=== PATIENT | female | born 1975 | race Caucasian/White ===

== ENCOUNTER → 2017-05-31 | Outpatient (CLI) | payer OTHER ==
--- NOTE | 2017-05-31 15:33 | RADIOLOGY IMAGING REPORT ---
FACILITY: [facility] PATIENT NAME: EDMOND GREENWOOD : [id number] MR: [id number] V: [id number] EXAM DATE: [id number] ORDERING PHYSICIAN: ALMAZ MCFADDEN TECHNOLOGIST: Yuni Joyner PROCEDURE:BILATERAL DIAGNOSTIC DIGITAL MAMMOGRAM COMPARISON:None. INDICATIONS:SPONTANEOUS NIPPLE DISCHARGE FINDINGS: This digital mammogram has been dictated along with the Ultrasound IMPRESSION: 1. Dictated by: Titi Youngblood M.D. on 05/31/2017 at 13:08 Transcribed by: HECTOR on 05/31/2017 at 14:10 Approved by: Titi Youngblood M.D. on 05/31/2017 at 15:33 [facility]
--- NOTE | 2017-05-31 15:35 | RADIOLOGY IMAGING REPORT ---
FACILITY: PATIENT NAME: EDMOND GREENWOOD : [id number] MR: [id number] V: [id number] EXAM DATE: [id number] ORDERING PHYSICIAN: ALMAZ MCAFDDEN TECHNOLOGIST: Ashwin Taylor PROCEDURE:BILATERAL DIAGNOSTIC MAMMOGRAM WITH CAD ASSISTED INTERPRETATION & 3D TOMOSYNTHESIS, AND US LEFT BREAST COMPARISON:None. INDICATIONS:SPONTANEOUS CLEAR LEFT NIPPLE DISCHARGE FINDINGS: Mammographic findings: Scattered fibroglandular tissue is present in both breasts. No masses or suspicious calcifications. Ultrasound findings: A few mildly dilated ducts are present in the Left retroareolar region. A 5mm oval shaped mass suggesting a papilloma is present within a duct in the inferior Left retroareolar region. DIAGNOSTIC CATEGORY 4--SUSPICIOUS FOR MALIGNANCY. RECOMMENDATIONS: SURGICAL CONSULTATION. IMPRESSION: BIRADS 4a: Suspicious abnormality. RECOMMENDATIONS: Surgical consultation for evaluation of Left retroareolar intraductal mass. COMMENT: The findings and recommendations were discussed with the patient on 05/31/17. Dictated by: Titi Youngblood M.D. on 05/31/2017 at 12:14 Transcribed by: HECTOR on 05/31/2017 at 14:10 Approved by: Titi Youngblood M.D. on 05/31/2017 at 15:34 [facility]
== END ==
LOC: MAMO 10:21
PROVIDERS: ATTEND Nurse Practitioner Family
DX: N60.42 Mammary duct ectasia of left breast (principal)
CPT/HCPCS: 77062; 77066

== ENCOUNTER 2017-07-22 01:01 | Day surgery (SDC) | payer OTHER ==
[~2017-07-22] VITALS: Ht 167.6 cm; Wt 121.6 kg
[~2017-07-22 01:01] MED LIST: ALB6.7R INH; ASCO-182 PO; CETI-176 PO; CHOL10005 PO; CYAN100T25 PO; DOXY25TA11 PO; FEXO-20 PO; IBUP200C71 PO; LORA-802 PO; MONT10TA PO; MULT1TAB64 PO; NORMOSOL R SOLN(*) 1000 ML BAG 1,000 ML IV PRN
[2017-07-22 06:21] VITALS: BP 132/67
[2017-07-22 06:27] LABS: PLATELET COUNT, AUTOMATED 285 K/uL (150-450)
[2017-07-22] MEDS ORDERED: NORMOSOL R SOLN(*) 1000 ML BAG 1,000 ML IV PRN (06:45)
[2017-07-22] MEDS ORDERED: ROPIVACAINE 0.5% 20 ML VIAL ONE (07:10)
[2017-07-22] MEDS ORDERED: fentaNYL CITR 100 MCG/2 ML AMP ONE (07:28)
[2017-07-22] MEDS ORDERED: LIDOCAINE 2% IV 100 MG/5ML SYR ONE (07:29)
[2017-07-22] MEDS ORDERED: PROPOFOL EMUL(*) 10MG/ML 20 ML 20 ML ONE (07:30)
[2017-07-22] MEDS ORDERED: DEXAMETHASONE SOD 4 MG/ML VIAL ONE (07:36)
[2017-07-22] MEDS ORDERED: ONDANSETRON 4 MG/2 ML VIAL ONE (07:37)
[2017-07-22] MEDS ORDERED: VANCOMYCIN 1 GM ADDVIAL 1 GM in NS(*) 0.9% 250 ML ADDVAN BAG 250 ML IVPB ONE (08:00)
[2017-07-22] MEDS ORDERED: FAMOTIDINE 20 MG TAB PO ONE (08:00)
[2017-07-22] MEDS ORDERED: MIDAZOLAM 2 MG/2 ML VIAL IVP PRN (08:00)
[2017-07-22] MEDS ORDERED: LIDOCAINE/SOD BICARB 8.4% SYR ID ONE (08:00)
[2017-07-22] MEDS ORDERED: DOCU-416 PO (08:44)
[2017-07-22] MEDS ORDERED: OXYC-854 PO (08:44)
--- NOTE | 2017-07-22 08:47 | Short(Outpt) Discharge Summary ---
Discharge Summary Reason for Hosp/Final Diag: (1) Discharge from left nipple Status: Chronic Hospital Course & Plan: Left breast duct excision completed without problems. 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 Departure Discharge to: Home, Self Care Discharge Instructions Home Meds Active Scripts Docusate Sodium (COLACE) 100 Mg Capsule, 1 CAP PO BID, #30 CAP 0 Refills TAKE WITH A FULL GLASS OF WATER Prov:ELISEO HUFF MD 07/22/17 Oxycodone Hcl/Acet 5/325 Mg (ENDOCET 5-325 TABLET) 1 Each Tablet, 1-2 TAB PO Q4H Y for PAIN, #30 TAB 0 Refills Prov:ELISEO HUFF MD 07/22/17 Reported Medications Doxylamine Succinate (SLEEP AID) 25 Mg Tablet, 25 MG PO PRN 06/02/17 Cholecalciferol (Vitamin D3) (VITAMIN D3) 1,000 Unit Tablet, 1000 UNIT PO QDAY, TAB 06/02/17 Ascorbic Acid (VITAMIN C) 500 Mg Tablet, 500 MG PO QDAY, TAB 06/02/17 Ibuprofen (IBUPROFEN) 200 Mg Capsule, 2 CAP PO Q6H Y for prn, CAPSULE 06/02/17 Cyanocobalamin (Vitamin B-12) (VITAMIN B-12) Unknown Strength Tablet, 1000 MCG PO QDAY 06/02/17 Multivitamin (MULTI VITAMIN DAILY) 1 Each Tablet, 1 EACH PO QDAY, TAB 06/02/17 Cetirizine Hcl (ZYRTEC) 10 Mg Tablet, 10 MG PO QDAY, TAB 06/02/17 Loratadine (CLARITIN) 10 Mg Tablet, 10 MG PO QDAY 06/02/17 Fexofenadine Hcl (FEXOFENADINE HCL) Unknown Strength Tablet, 180 MG PO QDAY 06/02/17 Albuterol Sulfate (PROVENTIL HFA) 6.7 Gm Inh, 1-2 PUFF INH DIRECTED, INH 06/02/17 Montelukast Sodium (SINGULAIR) 10 Mg Tablet, 1 TAB PO QDAY, TAB 06/02/17 Follow up Referrals: General Surgery - 08/10/17 @ Surgery, General with Eliseo Huff Md You have a follow up appointment scheduled with Dr. Huff on 08/10/17, at 4:15pm. Diet: Regular Activity: As Tolerated Special Instructions: You may remove the white surgical dressings on 07/24/17, then you can shower. After showering, leave the incisions open to air but leave the steristrips in place until they fall off on their own. Do not immerse the incisions for 2 weeks. There are sutures in your nipple that should fall out in the next 2 weeks but if they haven't by your follow up appointment, I'll remove them at that time. ELISEO HUFF MD July 22, 2017 08:47
--- NOTE | 2017-07-22 08:53 | Post Operative Progress Note ---
Post Operative Progress Note Date: July 22, 2017 Time: 08:47 Surgeon: Polina Dictation number: [id number] Anesthesia: LMA by Dr. Yanes Pre-Op Diagnosis: Left breast nipple discharge with lesion on U/S Post-Op Diagnosis: CASE Findings: None Procedure(s): Left breast duct excision Specimen Removed:(May be N/A): Left breast ducts Complications: None Fluids: See anesthesia record Estimated Blood Loss: Minimal Date OP Note Dictated: July 22, 2017 Time OP Note Dictated: 08:48 ELISEO HUFF MD July 22, 2017 08:53
--- NOTE | 2017-07-22 15:01 | OPERATIVE REPORT 1 ---
EVENT DATE: July 22, 2017 SURGEON: Etienne Fish MD ANESTHESIOLOGIST: Davian Yanes MD ANESTHESIA: LMA. PREOPERATIVE DIAGNOSIS Left breast nipple discharge with lesion on ultrasound consistent with intraductal papilloma. POSTOPERATIVE DIAGNOSIS Left breast nipple discharge with lesion on ultrasound consistent with intraductal papilloma. PROCEDURE PERFORMED Left breast duct excision. COMPLICATIONS None. CONDITION Stable. BLOOD LOSS Minimal. INDICATIONS This is a 41-year-old female who was referred to me with persistent left nonbloody, spontaneous, single duct nipple discharge. She has had previous workup including an ultrasound which consistent with an intraductal papilloma in the inferior portion of her left breast. She was requesting to have the nipple duct or ducts removed depending on surgical findings. DESCRIPTION OF PROCEDURE Patient was brought to the operating room and placed supine on the operating table. LMA anesthesia was administered, and her left breast was prepped and draped in a sterile fashion. Timeout was completed. I was able to express fluid from her left nipple and attempted to cannulate the duct with a lacrimal duct probe, but ultimately was not able to isolate the duct. I then anesthetized the skin at the tip of the nipple as well as around the areolar margin inferiorly with 0.5% ropivacaine plain and then made a circular incision in the center of the nipple and dissected through the dermis and subcutaneous fat. I then made a circumareolar incision along the inferior portion of her areola and dissected through the dermis and subcutaneous fat. I then created an areolar flap cephalad towards the nipple, then encircled the ducts in the center and connected the wound from the nipple to the main wound, then pulled the ducts into the main wound, and then dissected around them for several centimeters. I then passed the specimen off the field and made the wound hemostatic with pressure. I closed the nipple defect with two interrupted 3-0 chromic sutures, then closed the subcutaneous pocket with interrupted 3-0 Vicryl sutures, and the skin was closed with interrupted 3-0 Vicryl deep dermal sutures and 4-0 Monocryl running subcuticular sutures. Skin was cleaned and dried, and Steri-Strips were applied, followed by a sterile surgical dressing. The patient was awakened and LMA removed. She was transported to the recovery room in stable condition having tolerated the procedure without any apparent problems. CHRISTIANO
== END 2017-07-22 09:55 | disposition home or self-care (01) ==
LOC: OR 01:01
PROVIDERS: ATTEND Surgery
DX: D24.2 Benign neoplasm of left breast (principal); E66.01 Morbid (severe) obesity due to excess calories; Z68.41 Body mass index [BMI] 40.0-44.9, adult; J45.909 Unspecified asthma, uncomplicated; F41.8 Other specified anxiety disorders
CPT/HCPCS: 19112; 36415; 81025; 85025; 88305; 88344; J1100; J2001; J2405; J2704; J2795; J3010; J3370; J7050

== ENCOUNTER → 2017-12-14 | Outpatient (CLI) | payer OTHER ==
[~2017-12-14] MED LIST changes: +ALB18R INH; +DOCU-416 PO; +IBUP-136 PO; -IBUP200C71 PO; -NORMOSOL R SOLN(*) 1000 ML BAG 1,000 ML IV PRN; +OXYC-854 PO
== END ==
LOC: LAB 13:47
PROVIDERS: ATTEND Emergency Medicine
DX: R53.83 Other fatigue (principal); H04.123 Dry eye syndrome of bilateral lacrimal glands
CPT/HCPCS: 36415; 82040; 82247; 82306; 82310; 82374; 82435; 82565; 82607; 82947; 84075; 84132; 84155; 84295; 84443; 84450; 84460; 84520; 86038; 86140

== ENCOUNTER → 2017-12-21 | Outpatient (CLI) | payer OTHER ==
--- NOTE | 2017-12-21 16:18 | RADIOLOGY IMAGING REPORT ---
FACILITY: [facility] [place] PATIENT NAME: Jake Brown : 1975 MR: [id number] V: [id number] EXAM DATE: [id number] ORDERING PHYSICIAN: WILMER MEJIA TECHNOLOGIST: Location: [facility] [place] Patient: Jake Brown : 1975 Visit/Account:[id number] Date of Sevice: 12/21/2017 SINUSES W/O CONTRAST COMPARISONS: None ADDITIONAL PERTINENT HISTORY: Recurrent sinus infections with maxillary pressure for several years. TECHNIQUE: Multiple axial images were obtained through the paranasal sinuses with coronal and sagitta l reformatted images. No IV contrast was administered. One of the following dose optimization techni ques was utilized in the performance of this exam: Automated exposure control; adjustment of the mA a nd/or kV according to the patient's size; or use of an iterative reconstruction technique. Specific details can be referenced in the facility's radiology CT exam operational policy. FINDINGS: Maxillary sinuses: Severe lobular mucosal thickening involving both maxillary sinuses.. Frontal sinuses: Negative. Ethmoid air cells: Patchy opacification of the posterior ethmoid air cells. Otherwise negative. Sphenoid sinuses:Negative. Nasal septum: Mild nasal septal deviation to the left.. Drainage pathways: Patent Paranasal variance: None Medial orbital schroeder, cribriform plate, and orbital floors: Negative. Visualized bony skull base Negative. Visualized intracranial contents: Negative. Orbits and surrounding soft tissues: Negative. IMPRESSION: 1. Nonobstructive paranasal sinus disease involving both maxillary sinuses and the posterior ethmoid air cells. 2. Mild nasal septal deviation to the left. Report Dictated By: Michael Taylor MD at 12/21/2017 4:10 PM Report E-Signed By: Michael Taylor MD at 12/21/2017 4:14 PM WSN:[id number]
== END ==
LOC: CT 00:25
PROVIDERS: ATTEND Emergency Medicine
DX: J32.8 Other chronic sinusitis (principal); J34.2 Deviated nasal septum
CPT/HCPCS: 70486

== ENCOUNTER → 2017-12-24 | Outpatient (CLI) | payer OTHER | LOC: RESP 00:24 | PROVIDERS: ATTEND Emergency Medicine | DX: J45.909 Unspecified asthma, uncomplicated (principal) | CPT/HCPCS: 94060; 94726; 94729 ==

== ENCOUNTER 2018-01-25 17:00 | Outpatient (RCR) | payer OTHER ==
--- NOTE | 2018-01-14 08:48 | PT INITIAL EVALUATION ---
MEDICAL DIAGNOSIS: Upper Back Pain TREATMENT DIAGNOSIS: Cervical Dysfunction DATE OF ONSET: 01/13/18 SUBJECTIVE: Jake is a 42 year old female presenting to physical therapy following prolonged onset of the last couple years of upper back and shoulder pain. Pt describes pain as sharp and stabbing when it comes on between the shoulders in the upper back and neck. Pain is rated as a 3/10 currently and comes and goes. Pain at at its worst is rated as 6-7/10 and increases with sitting at the computer. Pain can change from a sharp pain to a burning pain. Pt also occasionally has tingling in fingers on both hands R>L in an ulnar nerve distribution. Pain is better with lying down, massage, and yoga. 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 Pt has a history of L shoulder problems. Pt also has R LE knee and plantar pain. REHAB PROBLEM LIST: Increased Pain Decreased ROM Decreased Strength Decreased Endurance Decreased Function Decreased ADL's Decreased Mobility PREVIOUS MEDICAL HISTORY: See EMR OBJECTIVE: Posture: Rounded shoulders, forward head posture. ROM: Thoracic ROM: flexion: minimal restrictions with pain, B rotation: full, ext: minimally restricted. Cervical ROM: not tested at this time Palpation: Pt is ttp from T2-4 along the spine with radiating pain to B mid scapular level. Sensation: Pt reports occasional numbness and tingling on R forearm and digits 4&5. Mobility: Repeated Thoracic Motion: flexion: pain increased to 4/10 with movement up to C7 no change on shoulder location, ext: pain centralized in to B UT region with movement up to C4 tingling in R lateral digits. Repeated Cervical Motion: retraction with ext: decreased tingling in R hand centralized pain to within 1 inch on L of spine and UT level on R side. Other Objective Findings: QuickDASH: 38.6% ASSESSMENT: Pt presents with signs and symptoms consistent with cervical/thoracic dysfunction with neural impingement. Physical therapy is indicated for this patient to correct the above listed deficits to improve pt function with ADL's and occupational activities. Short Term Goals In 3 weeks pt will centralize pain to the cervical spine only for improved function with ADL's. In 6 weeks pt will increase cervical and thoracic ROM to full for increased functional mobility with ADL's. In 6 weeks pt will increase QuickDASH impairment score to <10% for improved function with ADL's. Patient's Goals Improve function of B UE and decrease pain. PLAN: Patient to be seen for Manual Therapy/STM/MET Strengthening/condition Ice/Heat Range of Motion Spinal Stabilization Ultrasound Stretching Iontophoresis Neuromuscular Re-ed Closed Chain Program Electrical Stim Posture/Body mechanics Biofeedback Home Exercise Program Mech./Manual Traction Therapeutic Activities 3x/Week for 4 Weeks If you have any questions, comments, or concerns about this report or plan, please contact me at . Thank you, Sandra Pelletier, PT, DPT, CLT Zainab Marie, SPT MTDD
[~2018-01-25 17:00] MED LIST changes: +MOME0.246 IH
--- NOTE | 2018-01-25 18:06 | PT PLAN OF CARE ---
Physician: Geovanna Mcgee MD Patient is being seen: 3x/wk Therapist: Sandra Pelletier, PT, DPT, CLT & Zainab Marie, OJ Medical Diagnosis: Upper Back Pain Treatment Diagnosis: Cervical Dysfunction Date of Onset: 01/13/18 Date of Initial Evaluation: 01/13/18 Date patient was last seen: 01/25/18 Number of treatments: 4 Number of cancellations/No shows: 0 INTERVENTIONS: Manual Therapy/STM/MET Strengthening/condition Ice/Heat Range of Motion Spinal Stabilization Ultrasound Stretching Iontophoresis Neuromuscular Re-ed Closed Chain Program Electrical Stim Posture/Body mechanics Biofeedback Home Exercise Program Mech./Manual Traction Therapeutic Activities GOALS: In 3 weeks pt will centralize pain to the cervical spine only for improved function with ADL's. MET In 6 weeks pt will increase cervical and thoracic ROM to full for increased functional mobility with ADL's. MET In 6 weeks pt will increase QuickDASH impairment score to <10% for improved function with ADL's. MET PATIENT'S GOAL: Improve function of B UE and decrease pain. Status of Patient's Goals: 3/3 Goals Met Patient Compliance: Good Prognosis: Good Reasons to discharge from therapy: Jada is to discharge from physical therapy at this time due to completing 3/3 goals. Pt's cervical ROM and thoracic ROM is within functional limits without pain, just muscle tightness. Pt no longer has the intense pain in upper thoracic/cervical region nor does she have the numbness and tingling radiating down her R arm. Upon discharge, pt is going to continue her exercises at home but will be assessed next week for lower extremity impairments in B knees and B plantar fascia. Posture: Rounded shoulders, forward head posture. ROM: Thoracic ROM: flexion: Full, B rotation: full, ext: minimally restricted with tightness. Cervical ROM: flex: full, ext: full with tightness, L sidebend: 30, R sidebend, 45, L rot: 90, R rot: 80 Outcome Measures: QuickDASH: 9.09% impairment. If you have any questions feel free to contact me at [phone]. Thank you, Sandra Pelletier, PT, DPT, CLT Zainab Marie This Physical Therapist was present for the entire physical therapy session directing the services, making the skilled judgement, and was not engaged in treating another patient or doing another task at the same time as the treatment session. CHRISTIANO
== END 2018-04-13 ==
LOC: PT 17:00
PROVIDERS: ATTEND Emergency Medicine
DX: M54.9 Dorsalgia, unspecified (principal); R20.2 Paresthesia of skin
CPT/HCPCS: 97161